=== PATIENT | female | born 1980 | race Caucasian/White ===

== ENCOUNTER 2016-10-28 22:54 | Emergency (ER) | payer OTHER ==
[~2016-10-28] VITALS: Ht 170.2 cm; Wt 127.3 kg
[~2016-10-28 22:54] MED LIST: CIPRO 500MG TA500 MG PO; FERROUS SU325 MG/TAB PO; IBU-6600 MG PO; MOTRIN 800800 MG/TAB PO; NO HOME MEDICATIONS; NORCO 325 MG-51 TAB PO; NORCO 325 MG-7.1 TAB PO; PERCOCET 325 MG1 TA2 PO; PRENATAL VITAMI1 TA5 PO; PRILOSEC 20MG20 MG PO; VALIUM 5MG T5 MG/TAB PO; XANAX .25M0.25 MG/TA PO; ZOFRAN 4MG T4 MG/TAB PO; ZOLOFT 100MG100 MG PO; [UNRECOGNIZED DRUG - MIXTURE]
[2016-10-28 22:59] VITALS: BP 126/88; TEMP 98.4
[2016-10-28] MEDS ORDERED: PERCOCET 325 MG1 TA2 PO (23:27)
[2016-10-28] MEDS ORDERED: ULTRAM 50MG TAB50 MG PO (23:27)
[2016-10-28 23:37] VITALS: PULSE 70
== END 2016-10-28 23:45 | disposition home or self-care (01) ==
LOC: COL.ER 22:54
DX: M25.561 Pain in right knee (principal); G89.29 Other chronic pain; F32.9 Major depressive disorder, single episode, unspecified; F41.9 Anxiety disorder, unspecified

== ENCOUNTER 2017-01-02 19:44 | Emergency (ER) | payer OTHER ==
[~2017-01-02] VITALS: Ht 170.2 cm; Wt 125.6 kg
[~2017-01-02 19:44] MED LIST changes: +ULTRAM 50MG TAB50 MG PO
[2017-01-02 19:46] VITALS: TEMP 97.9
[2017-01-02] MEDS ORDERED: LEXAPRO 10MG10 MG PO (19:50)
[2017-01-02 20:42] LABS: BASO % 0.3 % (0.0-2.0); EOS # 0.1 (0.0-0.7); EOS % 0.6 % (0-4.0); GRAN # 7.8 (1.4-6.5); GRAN % 70.7 % (42.2-75.2); HEMATOCRIT 39.4 % (37.0-47.0); HEMOGLOBIN 13.6 g/dl (12.5-16.0); LYMPH # 2.6 (1.2-3.4); LYMPH % 23.8 % (20.0-51.0); MEAN CELL VOLUME 97 fl (80.0-100.0); MEAN CORPUSCULAR HEMOGLOBIN 33 pg (27.0-31.0); MEAN CORPUSCULAR HGB CONC 35 g/dl (33.0-37.0); MEAN PLATELET VOLUME 11.5 fl (7.4-10.4); MONO # 0.5 (0.1-0.6); MONO % 4.4 % (1.7-9.3); PLATELET COUNT 332 K/mm3 (130-400); RED BLOOD COUNT 4.07 M/mm3 (4.10-5.30); REDCELL DISTRIBUTION WIDTH-CV 12.1 % (11.5-14.5)
[2017-01-02 20:45] LABS: ACETAMINOPHEN < 10 ug/mL (10-30); ADJUSTED CALCIUM 8.9 mg/dL (8.4-10.2); ALANINE AMINOTRANSFERASE 21 U/L (9-52); ALBUMIN 4.7 gm/dL (3.5-5.0); ALKALINE PHOSPHATASE 74 U/L (50-136); ANION GAP 13 mmol/L (7-16); BILIRUBIN,TOTAL 0.8 mg/dL (0.0-1.0); BLOOD UREA NITROGEN 9 mg/dL (7-17); CALCIUM 9.5 mg/dL (8.4-10.2); CARBON DIOXIDE 20 mmol/L (22-30); CHLORIDE 108 mmol/L (98-107); CREATININE, serum 0.71 mg/dL (0.52-1.25); GLUCOSE 94 mg/dL (74-106); POTASSIUM 3.6 mmol/L (3.4-5.0); SALICYLATE 3.1 mg/dL; SODIUM 141 mmol/L (137-145)
[2017-01-02 21:01] LABS: AMPHETAMINE URINE NEGATIVE; BARBITURATES URINE NEGATIVE; BENZODIAZEPINES URINE NEGATIVE; BUPRENORPHINE URINE NEGATIVE; METHADONE URINE NEGATIVE; OPIATES URINE NEGATIVE; OXYCODONE URINE NEGATIVE; PHENCYCLIDINE URINE NEGATIVE; PROPOXYPHENE URINE NEGATIVE; THC CANNABINOIDS URINE NEGATIVE
[2017-01-03 05:50] VITALS: BP 129/77; PULSE 86
== END 2017-01-03 06:00 ==
LOC: COL.ER 19:44
PROVIDERS: Physician Assistant
DX: R45.851 Suicidal ideations (principal); F32.9 Major depressive disorder, single episode, unspecified

== ENCOUNTER 2018-04-03 21:11 | Emergency (ER) | payer BC ==
[~2018-04-03] VITALS: Ht 170.2 cm; Wt 125.0 kg
[~2018-04-03 21:11] MED LIST changes: +DESYREL 50MG50 MG PO; +KLONOPIN 0.5MG0.5 MG PO; +LEXAPRO 10MG10 MG PO; +LEXAPRO20 MG PO
[2018-04-03 21:26] VITALS: TEMP 99.5
[2018-04-03 23:22] LABS: BASO % 0.1 % (0.0-2.0); GRAN # 6.3 (1.4-6.5); GRAN % 85.6 % (42.2-75.2); HEMATOCRIT 36.8 % (37.0-47.0); HEMOGLOBIN 12.7 g/dl (12.5-16.0); LYMPH # 0.7 (1.2-3.4); LYMPH % 8.9 % (20.0-51.0); MEAN CELL VOLUME 96 fl (80.0-100.0); MEAN CORPUSCULAR HEMOGLOBIN 33 pg (27.0-31.0); MEAN CORPUSCULAR HGB CONC 35 g/dl (33.0-37.0); MEAN PLATELET VOLUME 11.4 fl (7.4-10.4); MONO # 0.4 (0.1-0.6); MONO % 5.1 % (1.7-9.3); PLATELET COUNT 248 K/mm3 (130-400); RED BLOOD COUNT 3.82 M/mm3 (4.10-5.30); REDCELL DISTRIBUTION WIDTH-CV 12.5 % (11.5-14.5)
[2018-04-03] MEDS ORDERED: ZOFRAN ODT4 MG PO (23:32)
[2018-04-03 23:36] LABS: ALBUMIN 4.1 gm/dL (3.5-5.0); BILIRUBIN,TOTAL 0.7 mg/dL (0.0-1.0); C-REACTIVE PROTEIN 2.6 mg/dL (0.0-0.9); CALCIUM 8.8 mg/dL (8.4-10.2); CREATININE, serum 0.85 mg/dL (0.52-1.25); POTASSIUM 3.4 mmol/L (3.4-5.0); TOTAL PROTEIN 7.3 gm/dL (6.4-8.2)
[2018-04-04 03:41] VITALS: BP 125/76; PULSE 76
== END 2018-04-04 04:05 | disposition home or self-care (01) ==
LOC: COL.ER 21:11
PROVIDERS: Emergency Medicine
DX: R11.2 Nausea with vomiting, unspecified (principal); R19.7 Diarrhea, unspecified; F32.9 Major depressive disorder, single episode, unspecified; F41.9 Anxiety disorder, unspecified; Z90.49 Acquired absence of other specified parts of digestive tract
CPT/HCPCS: J1885; J2060; J2405; J2550; J7030

== ENCOUNTER 2018-06-25 19:55 | Emergency (ER) | payer BC ==
[~2018-06-25] VITALS: Ht 170.2 cm; Wt 127.3 kg
[~2018-06-25 19:55] MED LIST changes: +ZOFRAN ODT4 MG PO
[2018-06-25 20:06] VITALS: TEMP 97.1
[2018-06-25 20:42] LABS: BASO % 0.2 % (0.0-2.0); EOS # 0.2 (0.0-0.7); GRAN # 5.6 (1.4-6.5); GRAN % 66.2 % (42.2-75.2); HEMATOCRIT 42.1 % (37.0-47.0); HEMOGLOBIN 13.8 g/dl (12.5-16.0); LYMPH # 2.2 (1.2-3.4); LYMPH % 25.9 % (20.0-51.0); MEAN CELL VOLUME 100 fl (80.0-100.0); MEAN CORPUSCULAR HEMOGLOBIN 33 pg (27.0-31.0); MEAN CORPUSCULAR HGB CONC 33 g/dl (33.0-37.0); MEAN PLATELET VOLUME 10.9 fl (7.4-10.4); MONO # 0.5 (0.1-0.6); MONO % 5.5 % (1.7-9.3); PLATELET COUNT 312 K/mm3 (130-400); RED BLOOD COUNT 4.23 M/mm3 (4.10-5.30); REDCELL DISTRIBUTION WIDTH-CV 12.7 % (11.5-14.5)
[2018-06-25 20:56] LABS: ALANINE AMINOTRANSFERASE 9 U/L (9-52); ALBUMIN 4.4 gm/dL (3.5-5.0); ALKALINE PHOSPHATASE 76 U/L (50-136); ANION GAP 9 mmol/L (7-16); AST,SGOT 23 U/L (15-37); BILIRUBIN,TOTAL 0.3 mg/dL (0.0-1.0); BLOOD UREA NITROGEN 12 mg/dL (7-17); CALCIUM 9.5 mg/dL (8.4-10.2); CARBON DIOXIDE 26 mmol/L (22-30); CHLORIDE 106 mmol/L (98-107); CREATININE, serum 0.87 mg/dL (0.52-1.25); GLUCOSE 95 mg/dL (74-106); LIPASE 107 U/L (23-300); POTASSIUM 3.9 mmol/L (3.4-5.0); SODIUM 140 mmol/L (137-145); TOTAL PROTEIN 7.9 gm/dL (6.4-8.2)
[2018-06-25 21:10] LABS: TROPONIN-I < 0.012 ng/mL (0.000-0.035)
[2018-06-25] MEDS ORDERED: SEROQUEL XR400 M1 PO (21:44)
[2018-06-25] MEDS ORDERED: VISTARIL 2525 MG/CAP PO (21:45)
[2018-06-26] VITALS: BP 123/74
[2018-06-26 00:20] VITALS: PULSE 76
== END 2018-06-26 00:20 | disposition home or self-care (01) ==
LOC: COL.ER 19:55
PROVIDERS: Emergency Medicine
DX: R07.9 Chest pain, unspecified (principal)
CPT/HCPCS: J1885; J7030

== ENCOUNTER 2019-04-16 15:52 | Emergency (ER) | payer BC ==
[~2019-04-16] VITALS: Ht 170.2 cm; Wt 138.6 kg
[~2019-04-16 15:52] MED LIST changes: +SEROQUEL XR400 M1 PO; +VISTARIL 2525 MG/CAP PO
[2019-04-16 16:09] VITALS: BP 130/84; TEMP 97.7
[2019-04-16 16:48] LABS: BASO % 0.3 % (0.0-2.0); EOS # 0.4 (0.0-0.7); EOS % 5.3 % (0-4.0); GRAN # 3.9 (1.4-6.5); GRAN % 59.8 % (42.2-75.2); HEMATOCRIT 38.5 % (37.0-47.0); HEMOGLOBIN 12.6 g/dl (12.5-16.0); LYMPH # 1.9 (1.2-3.4); LYMPH % 29.4 % (20.0-51.0); MEAN CELL VOLUME 100 fl (80.0-100.0); MEAN CORPUSCULAR HEMOGLOBIN 33 pg (27.0-31.0); MEAN CORPUSCULAR HGB CONC 33 g/dl (33.0-37.0); MEAN PLATELET VOLUME 10.9 fl (7.4-10.4); MONO # 0.3 (0.1-0.6); PLATELET COUNT 316 K/mm3 (130-400); RED BLOOD COUNT 3.86 M/mm3 (4.10-5.30)
[2019-04-16 16:54] LABS: COLLECTION METHOD CLEAN CATCH
[2019-04-16 16:56] LABS: ALBUMIN 4.5 gm/dL (3.5-5.0); BILIRUBIN,TOTAL 0.2 mg/dL (0.0-1.0); C-REACTIVE PROTEIN 1.1 mg/dL (0.0-0.9); CALCIUM 9.2 mg/dL (8.4-10.2); CREATININE, serum 0.81 (0.52-1.25); POTASSIUM 3.5 mmol/L (3.4-5.0); TOTAL PROTEIN 7.7 gm/dL (6.4-8.2)
[2019-04-16 17:02] LABS: PH 5 (5-8); SQUAMOUS EPITHELIAL 0-2 /hpf; URINE APPEARANCE Clear; URINE BACTERIA None Seen /hpf; URINE BILIRUBIN Negative (NEGATIVE); URINE BLOOD 2+ (NEGATIVE); URINE COLOR Yellow; URINE GLUCOSE Negative (NEGATIVE); URINE KETONE Negative (NEGATIVE); URINE LEUKOCYTE ESTERASE Negative (NEGATIVE); URINE NITRATE Negative (NEGATIVE); URINE PROTEIN(semi-quant) Negative (NEGATIVE); URINE RBC 0-2 /hpf; URINE UROBILINOGEN Negative (NEGATIVE)
[2019-04-16] MEDS ORDERED: GAVILYTE C WI PO (17:49)
[2019-04-16 18:05] VITALS: PULSE 89
== END 2019-04-16 18:05 | disposition home or self-care (01) ==
LOC: COL.ER 15:52
PROVIDERS: Emergency Medicine
DX: K59.00 Constipation, unspecified (principal)

== ENCOUNTER 2019-04-25 13:14 | Emergency (ER) | payer BC ==
[~2019-04-25] VITALS: Ht 170.2 cm; Wt 134.1 kg
[~2019-04-25 13:14] MED LIST changes: +GAVILYTE C WI PO
[2019-04-25 13:19] VITALS: TEMP 98.3
[2019-04-25 14:53] LABS: COLLECTION METHOD CLEAN CATCH
[2019-04-25 14:58] LABS: PH 5 (5-8); SQUAMOUS EPITHELIAL 0-2 /hpf; URINE APPEARANCE Clear; URINE BACTERIA None Seen /hpf; URINE BILIRUBIN Negative (NEGATIVE); URINE BLOOD 2+ (NEGATIVE); URINE COLOR Straw; URINE GLUCOSE Negative (NEGATIVE); URINE KETONE Negative (NEGATIVE); URINE LEUKOCYTE ESTERASE Negative (NEGATIVE); URINE NITRATE Negative (NEGATIVE); URINE PROTEIN(semi-quant) Negative (NEGATIVE); URINE RBC 0-2 /hpf; URINE UROBILINOGEN Negative (NEGATIVE)
[2019-04-25 16:19] LABS: BASO % 0.3 % (0.0-2.0); EOS # 0.2 (0.0-0.7); EOS % 3.8 % (0-4.0); GRAN # 3.5 (1.4-6.5); GRAN % 60.5 % (42.2-75.2); HEMOGLOBIN 11.5 g/dl (12.5-16.0); LYMPH # 1.7 (1.2-3.4); LYMPH % 28.8 % (20.0-51.0); MEAN CELL VOLUME 101 fl (80.0-100.0); MEAN CORPUSCULAR HEMOGLOBIN 33 pg (27.0-31.0); MEAN CORPUSCULAR HGB CONC 33 g/dl (33.0-37.0); MEAN PLATELET VOLUME 11.3 fl (7.4-10.4); MONO # 0.4 (0.1-0.6); MONO % 6.3 % (1.7-9.3); PLATELET COUNT 257 K/mm3 (130-400); RED BLOOD COUNT 3.45 M/mm3 (4.10-5.30); REDCELL DISTRIBUTION WIDTH-CV 13.2 % (11.5-14.5)
[2019-04-25 16:22] LABS: INR 0.9 (0.8-3.0); PROTHROMBIN TIME 10.9 SECONDS (9.7-12.8)
[2019-04-25 16:25] LABS: HEMATOCRIT 34.8 % (37.0-47.0); PARTIAL THROMBOPLASTIN TIME 31.6 SECONDS (26.0-37.0)
[2019-04-25 16:30] LABS: CALCIUM 8.3 mg/dL (8.4-10.2); CREATININE, serum 0.79 (0.52-1.25)
[2019-04-25] MEDS ORDERED: ANECREAM15 RC (17:18)
[2019-04-25 17:35] VITALS: BP 130/77; PULSE 89
== END 2019-04-25 17:35 | disposition home or self-care (01) ==
LOC: COL.ER 13:14
PROVIDERS: Emergency Medicine
DX: K60.2 Anal fissure, unspecified (principal); Z90.89 Acquired absence of other organs

== ENCOUNTER 2019-09-24 12:27 | Emergency (ER) | payer BC ==
[~2019-09-24] VITALS: Ht 170.2 cm; Wt 136.4 kg
[~2019-09-24 12:27] MED LIST changes: +ANECREAM15 RC; +TREMFYA100 MG/1 M SQ; +TRULANCE3 MG PO
[2019-09-24 13:59] LABS: COLLECTION METHOD CLEAN CATCH
[2019-09-24 14:05] LABS: BASO % 0.4 % (0.0-2.0); EOS # 0.3 (0.0-0.7); EOS % 3.2 % (0-4.0); GRAN # 5.1 (1.4-6.5); GRAN % 62.4 % (42.2-75.2); HEMATOCRIT 37.6 % (37.0-47.0); HEMOGLOBIN 12.7 g/dl (12.5-16.0); LYMPH # 2.2 (1.2-3.4); LYMPH % 26.9 % (20.0-51.0); MEAN CELL VOLUME 98 fl (80.0-100.0); MEAN CORPUSCULAR HEMOGLOBIN 33 pg (27.0-31.0); MEAN CORPUSCULAR HGB CONC 34 g/dl (33.0-37.0); MEAN PLATELET VOLUME 11.1 fl (7.4-10.4); MONO # 0.6 (0.1-0.6); MONO % 6.9 % (1.7-9.3); PLATELET COUNT 267 K/mm3 (130-400); RED BLOOD COUNT 3.82 M/mm3 (4.10-5.30); REDCELL DISTRIBUTION WIDTH-CV 13.2 % (11.5-14.5)
[2019-09-24 14:09] LABS: PH 6 (5-8); SQUAMOUS EPITHELIAL None Seen /hpf; URINE APPEARANCE Clear; URINE BACTERIA Rare /hpf; URINE BILIRUBIN Negative (NEGATIVE); URINE BLOOD Negative (NEGATIVE); URINE COLOR Straw; URINE GLUCOSE Negative (NEGATIVE); URINE KETONE Negative (NEGATIVE); URINE LEUKOCYTE ESTERASE Negative (NEGATIVE); URINE NITRATE Negative (NEGATIVE); URINE PROTEIN(semi-quant) Negative (NEGATIVE); URINE RBC None Seen /hpf; URINE UROBILINOGEN Negative (NEGATIVE)
[2019-09-24 14:21] LABS: TRICYCLIC ANTIDEPRESS URINE POSITIVE
[2019-09-24 14:24] LABS: ALANINE AMINOTRANSFERASE 20 U/L (4-34); ALBUMIN 4.3 gm/dL (3.5-5.0); ALKALINE PHOSPHATASE 76 U/L (50-136); ANION GAP 10 mmol/L (7-16); AST,SGOT 23 U/L (15-37); BILIRUBIN,TOTAL 0.4 mg/dL (0.0-1.0); BLOOD UREA NITROGEN 9 mg/dL (7-17); CALCIUM 8.9 mg/dL (8.4-10.2); CARBON DIOXIDE 19 mmol/L (22-30); CHLORIDE 108 mmol/L (98-107); CREATININE, serum 0.87 (0.52-1.25); GLUCOSE 108 mg/dL (74-106); POTASSIUM 3.5 mmol/L (3.4-5.0); SODIUM 137 mmol/L (137-145); TOTAL PROTEIN 7.5 gm/dL (6.4-8.2)
[2019-09-24 14:25] LABS: ACETAMINOPHEN < 10 ug/mL (10-30); ALCOHOL(ethanol),MEDICAL < 10 mg/dL; SALICYLATE < 1.0 mg/dL
[2019-09-24 21:39] VITALS: BP 116/79; PULSE 86; TEMP 98.1
== END 2019-09-24 21:38 | disposition home or self-care (01) ==
LOC: COL.ER 12:27
PROVIDERS: Nurse Practitioner
DX: G47.00 Insomnia, unspecified (principal); R44.0 Auditory hallucinations; R44.1 Visual hallucinations; F41.9 Anxiety disorder, unspecified; F32.9 Major depressive disorder, single episode, unspecified

== ENCOUNTER 2019-11-01 18:29 | Emergency (ER) | payer BC ==
[~2019-11-01] VITALS: Ht 170.2 cm; Wt 136.4 kg
[2019-11-01 19:34] LABS: COLLECTION METHOD CLEAN CATCH
[2019-11-01 19:39] LABS: BASO % 0.4 % (0.0-2.0); EOS # 0.3 (0.0-0.7); EOS % 3.3 % (0-4.0); GRAN # 5.1 (1.4-6.5); GRAN % 65.2 % (42.2-75.2); HEMATOCRIT 40.1 % (37.0-47.0); HEMOGLOBIN 13.5 g/dl (12.5-16.0); LYMPH # 1.9 (1.2-3.4); LYMPH % 23.8 % (20.0-51.0); MEAN CELL VOLUME 99 fl (80.0-100.0); MEAN CORPUSCULAR HEMOGLOBIN 33 pg (27.0-31.0); MEAN CORPUSCULAR HGB CONC 34 g/dl (33.0-37.0); MEAN PLATELET VOLUME 11.2 fl (7.4-10.4); MONO # 0.6 (0.1-0.6); MONO % 7.2 % (1.7-9.3); PLATELET COUNT 323 K/mm3 (130-400); RED BLOOD COUNT 4.05 M/mm3 (4.10-5.30); REDCELL DISTRIBUTION WIDTH-CV 13.1 % (11.5-14.5)
[2019-11-01 19:52] LABS: ALANINE AMINOTRANSFERASE 22 U/L (4-34); ALBUMIN 4.5 gm/dL (3.5-5.0); ALKALINE PHOSPHATASE 77 U/L (50-136); ANION GAP 10 mmol/L (7-16); AST,SGOT 29 U/L (15-37); BILIRUBIN,TOTAL 0.6 mg/dL (0.0-1.0); BLOOD UREA NITROGEN 12 mg/dL (7-17); C-REACTIVE PROTEIN 0.9 mg/dL (0.0-0.9); CALCIUM 9.2 mg/dL (8.4-10.2); CARBON DIOXIDE 20 mmol/L (22-30); CHLORIDE 109 mmol/L (98-107); CREATININE, serum 0.91 (0.52-1.25); GLUCOSE 95 mg/dL (74-106); LIPASE 96 U/L (23-300); POTASSIUM 3.5 mmol/L (3.4-5.0); SODIUM 139 mmol/L (137-145); TOTAL PROTEIN 8.2 gm/dL (6.4-8.2)
[2019-11-01 19:55] LABS: MUCOUS Present /lpf; PH 5 (5-8); SQUAMOUS EPITHELIAL 0-2 /hpf; URINE APPEARANCE Clear; URINE BACTERIA None Seen /hpf; URINE BILIRUBIN Negative (NEGATIVE); URINE BLOOD Negative (NEGATIVE); URINE COLOR Yellow; URINE GLUCOSE Negative (NEGATIVE); URINE KETONE Negative (NEGATIVE); URINE LEUKOCYTE ESTERASE Negative (NEGATIVE); URINE NITRATE Negative (NEGATIVE); URINE PROTEIN(semi-quant) Negative (NEGATIVE); URINE UROBILINOGEN Negative (NEGATIVE)
[2019-11-01 20:06] LABS: TROPONIN-I < 0.012 ng/mL (0.000-0.035)
[2019-11-01 21:09] VITALS: BP 124/74; PULSE 62; TEMP 98.2
== END 2019-11-01 21:11 | disposition home or self-care (01) ==
LOC: COL.ER 18:29
PROVIDERS: Emergency Medicine
DX: R10.13 Epigastric pain (principal); K21.9 Gastro-esophageal reflux disease without esophagitis; F41.9 Anxiety disorder, unspecified; F32.9 Major depressive disorder, single episode, unspecified; Z90.49 Acquired absence of other specified parts of digestive tract
CPT/HCPCS: J2405; J3010; J7030

== ENCOUNTER 2019-11-15 20:37 | Emergency (ER) | payer BC ==
[~2019-11-15] VITALS: Ht 170.2 cm; Wt 134.1 kg
[2019-11-15 20:45] VITALS: BP 116/83; TEMP 98.8
[2019-11-15 21:31] LABS: COLLECTION METHOD CLEAN CATCH
[2019-11-15 21:34] LABS: BASO % 0.4 % (0.0-2.0); EOS # 0.3 (0.0-0.7); EOS % 3.9 % (0-4.0); GRAN # 5.6 (1.4-6.5); HEMATOCRIT 42.3 % (37.0-47.0); HEMOGLOBIN 14.2 g/dl (12.5-16.0); LYMPH # 1.7 (1.2-3.4); LYMPH % 20.7 % (20.0-51.0); MEAN CELL VOLUME 99 fl (80.0-100.0); MEAN CORPUSCULAR HEMOGLOBIN 33 pg (27.0-31.0); MEAN CORPUSCULAR HGB CONC 34 g/dl (33.0-37.0); MEAN PLATELET VOLUME 11.3 fl (7.4-10.4); MONO # 0.5 (0.1-0.6); MONO % 5.8 % (1.7-9.3); PLATELET COUNT 299 K/mm3 (130-400); RED BLOOD COUNT 4.29 M/mm3 (4.10-5.30); REDCELL DISTRIBUTION WIDTH-CV 13.2 % (11.5-14.5)
[2019-11-15 21:37] LABS: MUCOUS Present /lpf; PH 5 (5-8); SQUAMOUS EPITHELIAL 0-2 /hpf; URINE APPEARANCE Clear; URINE BACTERIA None Seen /hpf; URINE BILIRUBIN Negative (NEGATIVE); URINE BLOOD Negative (NEGATIVE); URINE COLOR Yellow; URINE GLUCOSE Negative (NEGATIVE); URINE KETONE Negative (NEGATIVE); URINE LEUKOCYTE ESTERASE Negative (NEGATIVE); URINE NITRATE Negative (NEGATIVE); URINE PROTEIN(semi-quant) Negative (NEGATIVE); URINE RBC None Seen /hpf; URINE UROBILINOGEN Negative (NEGATIVE)
[2019-11-15 21:45] LABS: ALBUMIN 4.6 gm/dL (3.5-5.0); BILIRUBIN,TOTAL 0.5 mg/dL (0.0-1.0); C-REACTIVE PROTEIN 2.6 mg/dL (0.0-0.9); CALCIUM 9.1 mg/dL (8.4-10.2); CREATININE, serum 0.92 (0.52-1.25); POTASSIUM 4.2 mmol/L (3.4-5.0); TOTAL PROTEIN 8.4 gm/dL (6.4-8.2)
[2019-11-15 22:24] VITALS: PULSE 93
== END 2019-11-15 22:24 | disposition home or self-care (01) ==
LOC: COL.ER 20:37
PROVIDERS: Family Medicine
DX: K58.9 Irritable bowel syndrome, unspecified (principal); R10.9 Unspecified abdominal pain; F31.9 Bipolar disorder, unspecified
CPT/HCPCS: J1170; J2405; J7120

== ENCOUNTER → 2019-11-29 | Outpatient (CLI) | payer BC | LOC: COL.RAD 10:23 | DX: Z01.812 Encounter for preprocedural laboratory examination (principal); I67.1 Cerebral aneurysm, nonruptured ==

== ENCOUNTER 2019-12-02 07:58 | Outpatient (CLI) | payer BC ==
[~2019-12-02] VITALS: Ht 170.2 cm; Wt 140.6 kg
[2019-12-02] MEDS ORDERED: SEROQUEL400 MG PO (08:10)
[2019-12-02] MEDS ORDERED: TRILEPTAL 150M150 MG PO (08:11)
[2019-12-02] MEDS ORDERED: TRULANCE3 MG PO (08:12)
[2019-12-02] MEDS ORDERED: DESYREL DIVIDO150 M1 PO (08:12)
[2019-12-02] MEDS ORDERED: TREMFYA100 MG/1 M SQ (08:13)
[2019-12-02 08:14] VITALS: BP 122/86; PULSE 85
[2019-12-02 09:09] VITALS: BP 112/63; PULSE 66
[2019-12-02 09:15] VITALS: BP 108/66; PULSE 64
[2019-12-02 09:30] VITALS: BP 114/63; PULSE 61
[2019-12-02 09:43] LABS: GLUCOSE,CSF 50 mg/dL (40-70); TOTAL PROTEIN,CSF 32 mg/dL (15-45)
[2019-12-02 09:45] VITALS: BP 115/60; PULSE 59
[2019-12-02 10:00] VITALS: BP 118/65; PULSE 60
--- NOTE | 2019-12-02 10:36 | NUR ---
Pt recovered well from her LP. She denied any complaints at time of discharge. She verbalized understanding of dc instructions, written and verbal, and chose to ambulate to exit. I ambulated with pt to [facility] where she met her , gait was steady.
[2019-12-02 10:47] LABS: CSF APPEARANCE CLEAR; CSF COLOR COLORLESS
[2019-12-02 10:48] LABS: CSF MONONUCLEAR 74 % (70-100); CSF POLYMORPHONUCLEAR 26 % (0-6); CSF RBC < 1 /mm3 (0-0)
[2019-12-03] MEDS ORDERED: SEROQUEL XR400 M1 PO (21:12)
[2019-12-03] MEDS ORDERED: PRILOSEC 20MG20 MG PO (22:42)
[2019-12-03] MEDS ORDERED: TOPAMAX50 MG PO (22:44)
[2019-12-03] MEDS ORDERED: VISTARIL 2525 MG/CAP PO (22:48)
[2019-12-03] MEDS ORDERED: ULTRAM 50MG TAB50 MG PO (22:49)
== END 2019-12-02 10:38 | disposition home or self-care (01) ==
LOC: COL.RAD 07:58
PROVIDERS: Psychiatry & Neurology Neurology
DX: G93.2 Benign intracranial hypertension (principal)

== ENCOUNTER 2019-12-03 19:48 | Inpatient (IN) | payer BC ==
[~2019-12-03] VITALS: Ht 170.2 cm; Wt 135.5 kg
[2019-12-03] VITALS (102 sets, daily range): BP systolic 126; BP diastolic 75; PULSE 80; TEMP 98.9; O2SAT 91–99
[~2019-12-03 19:48] MED LIST changes: +DESYREL DIVIDO150 M1 PO; +SEROQUEL400 MG PO; +TRILEPTAL 150M150 MG PO
[2019-12-03 20:05] LABS: BASO % 0.6 % (0.0-2.0); EOS # 0.2 (0.0-0.7); EOS % 2.9 % (0-4.0); GRAN # 3.9 (1.4-6.5); GRAN % 55.6 % (42.2-75.2); HEMATOCRIT 38.2 % (37.0-47.0); HEMOGLOBIN 12.9 g/dl (12.5-16.0); LYMPH # 2.4 (1.2-3.4); LYMPH % 34.9 % (20.0-51.0); MEAN CELL VOLUME 99 fl (80.0-100.0); MEAN CORPUSCULAR HEMOGLOBIN 33 pg (27.0-31.0); MEAN CORPUSCULAR HGB CONC 34 g/dl (33.0-37.0); MEAN PLATELET VOLUME 10.9 fl (7.4-10.4); MONO # 0.4 (0.1-0.6); MONO % 5.9 % (1.7-9.3); PLATELET COUNT 315 K/mm3 (130-400); RED BLOOD COUNT 3.87 M/mm3 (4.10-5.30); REDCELL DISTRIBUTION WIDTH-CV 13.1 % (11.5-14.5)
[2019-12-03 20:16] LABS: ACETAMINOPHEN < 10 ug/mL (10-30); ALANINE AMINOTRANSFERASE 44 U/L (4-34); ALBUMIN 4.3 gm/dL (3.5-5.0); ALCOHOL(ethanol),MEDICAL < 10 mg/dL; ALKALINE PHOSPHATASE 80 U/L (50-136); ANION GAP 7 mmol/L (7-16); AST,SGOT 47 U/L (15-37); BILIRUBIN,TOTAL 0.4 mg/dL (0.0-1.0); BLOOD UREA NITROGEN 6 mg/dL (7-17); CALCIUM 9.2 mg/dL (8.4-10.2); CARBON DIOXIDE 26 mmol/L (22-30); CHLORIDE 104 mmol/L (98-107); CREATININE, serum 0.87 (0.52-1.25); GLUCOSE 102 mg/dL (74-106); POTASSIUM 3.8 mmol/L (3.4-5.0); SALICYLATE < 1.0 mg/dL; SODIUM 137 mmol/L (137-145); TOTAL PROTEIN 7.6 gm/dL (6.4-8.2)
[2019-12-03] MEDS ORDERED: SEROQUEL XR400 M1 PO (21:12)
[2019-12-03 21:44] LABS: COLLECTION METHOD CLEAN CATCH
--- NOTE | 2019-12-03 21:54 | NUR ---
Received report from DAYAN Day.
[2019-12-03 21:55] LABS: PH 7 (5-8); SQUAMOUS EPITHELIAL 0-2 /hpf; URINE APPEARANCE Clear; URINE BACTERIA None Seen /hpf; URINE BILIRUBIN Negative (NEGATIVE); URINE BLOOD Negative (NEGATIVE); URINE COLOR Yellow; URINE GLUCOSE Negative (NEGATIVE); URINE KETONE Negative (NEGATIVE); URINE LEUKOCYTE ESTERASE Negative (NEGATIVE); URINE NITRATE Negative (NEGATIVE); URINE PROTEIN(semi-quant) Negative (NEGATIVE); URINE RBC 0-2 /hpf; URINE UROBILINOGEN Negative (NEGATIVE)
[2019-12-03 22:08] LABS: TRICYCLIC ANTIDEPRESS URINE POSITIVE
--- NOTE | 2019-12-03 22:10 | NUR ---
Patient arrives to ICU room 8 via ED stretcher. Patient able to ambulate to ICU bed with SBA. Denies any pain or discomfort; vitals within normal limits. Patient is alert and oriented to self, time, location, and situation. She denies any current thoughts of self-harm. Clarified suicide precaution orders with Kathi; patient to be on 15-minute checks. Patient arrives with a bag of medications and a pill sales planner, which are given to warehouse person, Ellen. She also arrives with a bag of clothes, which are placed in the ICU safe. Patient is in novoa gown and the room has been safety-sweeped according to protocol. Will continue to monitor.
[2019-12-03] MEDS ORDERED: PRILOSEC 20MG20 MG PO (22:42)
[2019-12-03] MEDS ORDERED: TOPAMAX50 MG PO (22:44)
[2019-12-03] MEDS ORDERED: VISTARIL 2525 MG/CAP PO (22:48)
[2019-12-03 22:49] LABS: ALBUMIN 3.9 gm/dL (3.5-5.0); BILIRUBIN,TOTAL 0.3 mg/dL (0.0-1.0); CALCIUM 8.5 mg/dL (8.4-10.2); CREATININE, serum 0.82 (0.52-1.25); POTASSIUM 3.6 mmol/L (3.4-5.0); TOTAL PROTEIN 6.9 gm/dL (6.4-8.2)
[2019-12-03] MEDS ORDERED: ULTRAM 50MG TAB50 MG PO (22:49)
[2019-12-04] VITALS (456 sets, daily range): BP systolic 98–152; BP diastolic 5–91; PULSE 71–85; TEMP 97.4–98.9; O2SAT 81–100
[2019-12-04 00:20] LABS: PROTHROMBIN TIME 11.1 SECONDS (9.7-12.8)
[2019-12-04 00:23] LABS: PARTIAL THROMBOPLASTIN TIME 33.2 SECONDS (26.0-37.0)
[2019-12-04 05:36] LABS: ALBUMIN 3.6 gm/dL (3.5-5.0); BILIRUBIN,TOTAL 0.4 mg/dL (0.0-1.0); CALCIUM 8.2 mg/dL (8.4-10.2); CREATININE, serum 0.75 (0.52-1.25); POTASSIUM 3.8 mmol/L (3.4-5.0); TOTAL PROTEIN 6.5 gm/dL (6.4-8.2)
[2019-12-04 05:48] LABS: BASO % 0.4 % (0.0-2.0); EOS # 0.2 (0.0-0.7); GRAN # 3.3 (1.4-6.5); GRAN % 57.4 % (42.2-75.2); HEMOGLOBIN 11.9 g/dl (12.5-16.0); LYMPH # 1.8 (1.2-3.4); LYMPH % 31.8 % (20.0-51.0); MEAN CELL VOLUME 101 fl (80.0-100.0); MEAN CORPUSCULAR HEMOGLOBIN 34 pg (27.0-31.0); MEAN CORPUSCULAR HGB CONC 33 g/dl (33.0-37.0); MEAN PLATELET VOLUME 11.4 fl (7.4-10.4); MONO # 0.4 (0.1-0.6); MONO % 7.2 % (1.7-9.3); PLATELET COUNT 247 K/mm3 (130-400); RED BLOOD COUNT 3.54 M/mm3 (4.10-5.30); REDCELL DISTRIBUTION WIDTH-CV 13.2 % (11.5-14.5)
[2019-12-04 05:56] LABS: HEMATOCRIT 35.7 % (37.0-47.0)
--- NOTE | 2019-12-04 07:27 | NUR ---
Report given to DAYAN Mejia.
--- NOTE | 2019-12-04 07:27 | NUR ---
Report recieved from Zeina HANLEY. Patient in bed with eyes closed. Bed alarm on and call light in reach
--- NOTE | 2019-12-04 07:47 | NUR ---
Patient tells RN that she was incontietn fo urine. Up to chair for linen change and pericare. When getting up patient is impulsive, moves without assistance. States she is dizzy, unsteady on feet. Lowered to floor at this time. No injury noted, did not hit head. Able to get up to recliner with minimal assist from RN. Denies pain, dizziness improving. Transfer from recliner to toilet with 1:1 assit. Voids without diffictulty. When transferring back to recliner, needs reminded to wait for help and take her time. Gait unsteady, but minimal assist needed with transfer. Patient then transfers back to bed. Bed alarm on and bed rails on x4, call light in reach.
--- NOTE | 2019-12-04 08:25 | NUR ---
Heri Pugh RN, [place] [facility] notified of fall.
--- NOTE | 2019-12-04 08:47 | NUR ---
Patient tells RN that she was incontient of urine. Up to chair for linen change and pericare. When getting up patient is impulsive, moves without assitance. States she is dizzy, unsteady on feet. Lowered to floor at this time. No injury, does not hit head. Able to get up to recliner with minimal assist from RN. Denies pain, dizziness improving. Transfers from recliner to toilet with 1:1 assist. Voids without difficulty. When transferring back to recliner, needs reminded to wait for help and take her time. Gait unsteady, but minimal assist needed with transfer. Patient then transfers back to bed. Bed alarm on and bed rails up by 4, call light in reach.
--- NOTE | 2019-12-04 09:50 | NUR ---
Catherine from [facility] calls to set up Zoom session with patient. Patient sat up in bed and speaks with her at length. After session plan made, patient does not want inpatient hospitalization and neither think she's ready to return home, so patient agreeable to going to [facility] when stable and medically cleared. Will notify Dr. Thompson of plans. also called and updated.
--- NOTE | 2019-12-04 11:10 | NUR ---
To CT via cart for CT Head. 1120 - Returns from CT via cart with tech at side.
--- NOTE | 2019-12-04 11:50 | NUR ---
here to visit after ok from Dr. Thompson.
--- NOTE | 2019-12-04 14:51 | NUR ---
Catherine at [facility] called with patient update. Patient will be staying overnight and we will reassess in AM. [facility] states screen is good for several days, the only issue may be space but doesn't foresee that being an issue.
--- NOTE | 2019-12-04 16:17 | NUR ---
SW called spouse to complete intake due to patient not waking up for intake. Nurse provided patient has been sleeping most of the day. Spouse Jose Alberto stated that patient lives in [place] with him and their children. He states that she does not utilize a walker at this time, but does have some trouble walking. Spouse stated that she is independent with ADL's, PCP is Dr. Purcell, pharmacy is [facility] and that she is able to afford her medications at this time. Spouse stated that he is aware that upon discharge patient will be going to [facility] due to zoom screen today. SW will continue to follow.
--- NOTE | 2019-12-04 16:17 | NUR ---
brought patient belongings to hospital. Cell phone and commercial specialist out of bag for patient. While looking for cellphone, found Clonazepam in purse. 6 tablets in bottle. Bottle to med room, placed in zip lock bag with patient label and House Sup notified.
--- NOTE | 2019-12-04 18:00 | NUR ---
Arrives to ICU via stretcher from ED. Stands with minimal assists and transfers to bed. SOA with exerc but recovers quickly. Denies complaints of pain. Monitors applied and assessment complete. [place] to ICU. Call light given. Patient does have old, healed skin lesion under right abd fold. Approx nickel sized, no open areas. States will occassionally open, but isn't at this time.
--- NOTE | 2019-12-04 20:39 | NUR ---
PT complaining of back pain, requested to get up and stretch. PT up to recliner with assistance of RN, both understanding and verbalizing that she needed assistance due to shakiness. PT stated relief of pain while sitting up in recliner. Personal items and call light within reach, instructed to use call light for repositioning, PT sitting in visible spot from nurses station, yellow traction socks on. Will continue to monitor.
[2019-12-05] VITALS (7 sets, daily range): BP systolic 126–140; BP diastolic 70–78; PULSE 68–80; TEMP 98–98.7; O2SAT 93–97
[2019-12-05 05:06] LABS: BASO % 0.3 % (0.0-2.0); EOS # 0.3 (0.0-0.7); GRAN # 5.8 (1.4-6.5); GRAN % 66.5 % (42.2-75.2); HEMOGLOBIN 11.4 g/dl (12.5-16.0); LYMPH # 2.1 (1.2-3.4); MEAN CELL VOLUME 101 fl (80.0-100.0); MEAN CORPUSCULAR HEMOGLOBIN 34 pg (27.0-31.0); MEAN CORPUSCULAR HGB CONC 34 g/dl (33.0-37.0); MONO # 0.5 (0.1-0.6); PLATELET COUNT 273 K/mm3 (130-400); RED BLOOD COUNT 3.38 M/mm3 (4.10-5.30); REDCELL DISTRIBUTION WIDTH-CV 13.1 % (11.5-14.5)
[2019-12-05 05:16] LABS: CALCIUM 8.3 mg/dL (8.4-10.2); CREATININE, serum 0.74 (0.52-1.25); MAGNESIUM 2.2 mg/dL (1.6-2.3)
[2019-12-05] MEDS ORDERED: WALKER MC (11:38)
--- NOTE | 2019-12-05 11:50 | NUR ---
[facility] called at this time to notify them of patient arrival. Requested copy of records for admission-given to patient's to deliver.
--- NOTE | 2019-12-05 13:40 | NUR ---
Patient discharged into the care of her . Transfered to [facility] via wheelchair. All belongings and home medications collected and given to . Patient tearful but states she is ready to leave and go to the crisis center. Gluer Machine Setup Operator working on getting a walker delivered for patient use.
--- NOTE | 2019-12-05 14:20 | NUR ---
Received a call from the hospitalist informing SW that patient needed a walker and she would be discharing today. LEANA coordinated with nurse to complete documentation and to get appropriate signatures from the patient and the provider. LEANA contacted [facility] to coordinate delivery of equipment. LEANA faxed over documents, and contacted [facility] to inform them that documents had been sent. LEANA also contacted [facility] to inform them that DME would be delieved to that address.
== END 2019-12-05 13:40 | disposition home or self-care (01) | DRG 918 ==
LOC: COL.ER 19:48 → ICU 21:03
PROVIDERS: Emergency Medicine; Nurse Practitioner Family; ADMIT Hospitalist
DX: T43.222A Poisoning by selective serotonin reuptake inhibitors, intentional self-harm, initial encounter (principal); Z68.42 Body mass index [BMI] 45.0-49.9, adult; T43.592A Poisoning by other antipsychotics and neuroleptics, intentional self-harm, initial encounter; T42.1X2A Poisoning by iminostilbenes, intentional self-harm, initial encounter; T43.212A Poisoning by selective serotonin and norepinephrine reuptake inhibitors, intentional self-harm, initial encounter; F45.0 Somatization disorder; G62.9 Polyneuropathy, unspecified; E66.01 Morbid (severe) obesity due to excess calories; K58.9 Irritable bowel syndrome, unspecified; F41.9 Anxiety disorder, unspecified; F31.9 Bipolar disorder, unspecified
CPT/HCPCS: 99223-AI; 99232-AI; 99239; J2060; J2405; J7030

== ENCOUNTER → 2020-02-04 | Outpatient (CLI) | payer BC ==
[~2020-02-04] MED LIST changes: +TOPAMAX50 MG PO; +WALKER MC
== END ==
LOC: ZCOL.LAB 19:45
DX: R50.9 Fever, unspecified (principal); R05 Cough; R53.83 Other fatigue; R11.11 Vomiting without nausea; Z20.828 Contact with and (suspected) exposure to other viral communicable diseases

== ENCOUNTER → 2020-06-22 | Outpatient (CLI) | payer OTHER ==
[~2020-06-22] MED LIST changes: +ANTIVERT 25MG25 MG PO
== END ==
LOC: COL.RAD
DX: M25.562 Pain in left knee (principal)
CPT/HCPCS: J3301; Q9967

== ENCOUNTER → 2020-07-07 | Outpatient (CLI) | payer BC | LOC: COL.RAD 14:49 | DX: Z90.49 Acquired absence of other specified parts of digestive tract (principal); R10.31 Right lower quadrant pain | CPT/HCPCS: Q9967 ==

== ENCOUNTER 2020-10-12 23:06 | Emergency (ER) | payer BC ==
[~2020-10-12] VITALS: Ht 170.2 cm; Wt 136.4 kg
[~2020-10-12 23:06] MED LIST changes: -ANTIVERT 25MG25 MG PO
[2020-10-13 00:03] LABS: BASO % 0.3 % (0.0-2.0); EOS # 0.1 (0.0-0.7); EOS % 1.4 % (0-4.0); GRAN # 6.5 (1.4-6.5); GRAN % 68.6 % (42.2-75.2); HEMATOCRIT 40.2 % (37.0-47.0); HEMOGLOBIN 13.7 g/dl (12.5-16.0); LYMPH # 2.2 (1.2-3.4); LYMPH % 22.8 % (20.0-51.0); MEAN CELL VOLUME 97 fl (80.0-100.0); MEAN CORPUSCULAR HEMOGLOBIN 33 pg (27.0-31.0); MEAN CORPUSCULAR HGB CONC 34 g/dl (33.0-37.0); MONO # 0.6 (0.1-0.6); MONO % 6.7 % (1.7-9.3); PLATELET COUNT 368 K/mm3 (130-400); RED BLOOD COUNT 4.15 M/mm3 (4.10-5.30); REDCELL DISTRIBUTION WIDTH-CV 12.4 % (11.5-14.5)
[2020-10-13 00:30] LABS: ALBUMIN 4.6 gm/dL (3.5-5.0); BILIRUBIN,TOTAL 0.3 mg/dL (0.0-1.0); C-REACTIVE PROTEIN 0.9 mg/dL (0.0-0.9); CALCIUM 9.9 mg/dL (8.4-10.2); CREATININE, serum 0.68 (0.52-1.25); POTASSIUM 3.9 mmol/L (3.4-5.0); TOTAL PROTEIN 8.1 gm/dL (6.4-8.2)
[2020-10-13] MEDS ORDERED: ANTIVERT 25MG25 MG PO (01:51)
[2020-10-13] MEDS ORDERED: ZOFRAN ODT4 MG PO (01:51)
[2020-10-13 03:00] VITALS: BP 123/68; PULSE 85; TEMP 97.9
== END 2020-10-13 03:00 | disposition home or self-care (01) ==
LOC: COL.ER 23:06
PROVIDERS: Emergency Medicine
DX: R42 Dizziness and giddiness (principal); R11.2 Nausea with vomiting, unspecified; G43.909 Migraine, unspecified, not intractable, without status migrainosus; F31.9 Bipolar disorder, unspecified; F41.9 Anxiety disorder, unspecified; Z79.899 Other long term (current) drug therapy
CPT/HCPCS: J2550; J7030

== ENCOUNTER 2021-03-23 10:02 | Emergency (ER) | payer BC ==
[~2021-03-23] VITALS: Ht 170.2 cm; Wt 139.5 kg
[~2021-03-23 10:02] MED LIST changes: +ANTIVERT 25MG25 MG PO
[2021-03-23 10:18] VITALS: TEMP 97.8
[2021-03-23] MEDS ORDERED: HUMIRA20 MG/0.2 SQ (10:46)
[2021-03-23] MEDS ORDERED: ATIVAN 1MG T1 MG/TAB PO (10:48)
[2021-03-23 11:12] LABS: BASO % 0.3 % (0.0-2.0); EOS # 0.2 K/mm3 (0.0-0.7); EOS % 2.1 % (0-4.0); GRAN # 5.4 K/mm3 (1.4-6.5); GRAN % 76.2 % (42.2-75.2); HEMOGLOBIN 13.2 g/dl (12.5-16.0); LYMPH # 1.2 K/mm3 (1.2-3.4); LYMPH % 16.1 % (20.0-51.0); MEAN CELL VOLUME 95 fl (80.0-100.0); MEAN CORPUSCULAR HEMOGLOBIN 33 pg (27.0-31.0); MEAN CORPUSCULAR HGB CONC 35 g/dl (33.0-37.0); MEAN PLATELET VOLUME 11.3 fl (7.4-10.4); MONO # 0.4 K/mm3 (0.1-0.6); PLATELET COUNT 279 K/mm3 (130-400); RED BLOOD COUNT 4.02 M/mm3 (4.10-5.30); REDCELL DISTRIBUTION WIDTH-CV 12.1 % (11.5-14.5)
[2021-03-23 11:28] LABS: ALBUMIN 3.9 gm/dL (3.5-5.0); BILIRUBIN,TOTAL 0.4 mg/dL (0.2-1.2); C-REACTIVE PROTEIN 1.03 mg/dL (0.00-0.50); CALCIUM 8.7 mg/dL (8.4-10.2); CREATININE, serum 0.72 mg/dL (0.57-1.11); POTASSIUM 4.1 mmol/L (3.5-4.5)
[2021-03-23 12:12] LABS: COLLECTION METHOD CLEAN CATCH
[2021-03-23 12:27] LABS: MUCOUS Present (NOT PRESENT); PH 7 (5-8); SQUAMOUS EPITHELIAL None Seen /hpf (0-10); URINE APPEARANCE Clear (CLEAR/HAZY); URINE BACTERIA None Seen (NONE SEEN); URINE BILIRUBIN Negative (NEGATIVE); URINE BLOOD Negative (NEGATIVE); URINE COLOR Straw (YELLOW); URINE GLUCOSE Negative (NEGATIVE); URINE KETONE Negative (NEGATIVE); URINE LEUKOCYTE ESTERASE Negative (NEGATIVE); URINE NITRATE Negative (NEGATIVE); URINE PROTEIN(semi-quant) Negative (NEGATIVE); URINE RBC None Seen /hpf (0-2); URINE UROBILINOGEN Negative (NEGATIVE)
[2021-03-23] MEDS ORDERED: NORCO 325 MG-51 TAB PO (15:25)
[2021-03-23 15:48] VITALS: BP 136/76; PULSE 78
== END 2021-03-23 15:55 | disposition home or self-care (01) ==
LOC: COL.ER 10:02
PROVIDERS: Nurse Practitioner
DX: R10.10 Upper abdominal pain, unspecified (principal); K58.9 Irritable bowel syndrome, unspecified; Z32.02 Encounter for pregnancy test, result negative; Z79.899 Other long term (current) drug therapy
CPT/HCPCS: J1170; J7030; Q9967

== ENCOUNTER 2021-04-22 00:50 | Emergency (ER) | payer BC ==
[~2021-04-22] VITALS: Ht 170.2 cm; Wt 134.1 kg
[~2021-04-22 00:50] MED LIST changes: +ATIVAN 1MG T1 MG/TAB PO; +HUMIRA20 MG/0.2 SQ
[2021-04-22 00:56] VITALS: TEMP 97.8
[2021-04-22 01:37] LABS: BASO % 0.4 % (0.0-2.0); EOS # 0.3 K/mm3 (0.0-0.7); EOS % 3.6 % (0.0-4.0); GRAN # 4.6 K/mm3 (1.4-6.5); HEMATOCRIT 38.4 % (37.0-47.0); HEMOGLOBIN 12.8 g/dl (12.5-16.0); LYMPH # 2.5 K/mm3 (1.2-3.4); LYMPH % 31.5 % (20.0-51.0); MEAN CELL VOLUME 99 fl (80.0-100.0); MEAN CORPUSCULAR HEMOGLOBIN 33 pg (27-31); MEAN CORPUSCULAR HGB CONC 33 g/dl (33.0-37.0); MEAN PLATELET VOLUME 11.1 fl (7.4-10.4); MONO # 0.5 K/mm3 (0.1-0.6); MONO % 6.1 % (1.7-9.3); PLATELET COUNT 305 K/mm3 (130-400); REDCELL DISTRIBUTION WIDTH-CV 12.8 % (11.5-14.5)
[2021-04-22 01:57] LABS: ALANINE AMINOTRANSFERASE 12 U/L (0-55); ALBUMIN 3.7 gm/dL (3.5-5.0); ALKALINE PHOSPHATASE 77 U/L (40-150); ANION GAP 12 mmol/L (7-16); AST,SGOT 17 U/L (5-34); BILIRUBIN,TOTAL 0.2 mg/dL (0.2-1.2); BLOOD UREA NITROGEN 13 mg/dL (7-19); C-REACTIVE PROTEIN 0.47 mg/dL (0.00-0.50); CALCIUM 8.7 mg/dL (8.4-10.2); CARBON DIOXIDE 17 mmol/L (22-29); CHLORIDE 108 mmol/L (98-107); CREATININE, serum 0.73 mg/dL (0.57-1.11); GLUCOSE 146 mg/dL (70-99); POTASSIUM 3.3 mmol/L (3.5-4.5); SODIUM 137 mmol/L (136-145); TOTAL PROTEIN 6.9 gm/dL (6.2-8.1)
[2021-04-22 02:09] LABS: TROPONIN-I < 0.010 ng/mL (0.00-0.033)
[2021-04-22] MEDS ORDERED: ZOFRAN ODT4 MG PO (03:53)
[2021-04-22 04:30] VITALS: BP 137/77; PULSE 97
== END 2021-04-22 04:30 | disposition home or self-care (01) ==
LOC: COL.ER 00:50
PROVIDERS: Emergency Medicine
DX: I95.1 Orthostatic hypotension (principal); F41.9 Anxiety disorder, unspecified; F31.81 Bipolar II disorder; L40.9 Psoriasis, unspecified; E66.01 Morbid (severe) obesity due to excess calories; G47.00 Insomnia, unspecified; K58.9 Irritable bowel syndrome, unspecified; Z20.822 Contact with and (suspected) exposure to COVID-19; Z68.42 Body mass index [BMI] 45.0-49.9, adult; Z79.899 Other long term (current) drug therapy
CPT/HCPCS: J2405; J7030

== ENCOUNTER 2021-07-01 16:08 | Emergency (ER) | payer BC ==
[~2021-07-01] VITALS: Ht 170.2 cm; Wt 136.4 kg
[2021-07-01 16:20] VITALS: TEMP 97
[2021-07-01 16:58] LABS: BASO % 0.4 % (0.0-2.0); EOS # 0.2 K/mm3 (0.0-0.7); EOS % 3.7 % (0.0-4.0); GRAN # 2.7 K/mm3 (1.4-6.5); GRAN % 57.9 % (42.2-75.2); HEMOGLOBIN 11.8 g/dl (12.5-16.0); LYMPH # 1.4 K/mm3 (1.2-3.4); LYMPH % 30.7 % (20.0-51.0); MEAN CELL VOLUME 95 fl (80.0-100.0); MEAN CORPUSCULAR HEMOGLOBIN 33 pg (27-31); MEAN CORPUSCULAR HGB CONC 35 g/dl (33.0-37.0); MEAN PLATELET VOLUME 10.2 fl (7.4-10.4); MONO # 0.3 K/mm3 (0.1-0.6); MONO % 7.1 % (1.7-9.3); PLATELET COUNT 277 K/mm3 (130-400); RED BLOOD COUNT 3.53 M/mm3 (4.10-5.30); REDCELL DISTRIBUTION WIDTH-CV 13.1 % (11.5-14.5)
[2021-07-01 16:59] LABS: HEMATOCRIT 33.6 % (37.0-47.0)
[2021-07-01 17:16] LABS: ALBUMIN 3.5 gm/dL (3.5-5.0); BILIRUBIN,TOTAL 0.2 mg/dL (0.2-1.2); CALCIUM 8.4 mg/dL (8.4-10.2); CREATININE, serum 0.75 mg/dL (0.57-1.11); POTASSIUM 4.1 mmol/L (3.5-4.5); TOTAL PROTEIN 6.5 gm/dL (6.2-8.1)
[2021-07-01 17:49] VITALS: BP 136/91; PULSE 87
== END 2021-07-01 17:55 | disposition home or self-care (01) ==
LOC: COL.ER 16:08
PROVIDERS: Nurse Practitioner Primary Care
DX: T42.4X2A Poisoning by benzodiazepines, intentional self-harm, initial encounter (principal); T43.592A Poisoning by other antipsychotics and neuroleptics, intentional self-harm, initial encounter; F41.9 Anxiety disorder, unspecified

== ENCOUNTER 2021-09-24 22:20 | Emergency (ER) | payer BC ==
[~2021-09-24] VITALS: Ht 170.2 cm; Wt 134.1 kg
[2021-09-24 22:49] VITALS: TEMP 98.4
[2021-09-25 01:15] LABS: BASO % 0.6 % (0.0-2.0); EOS # 0.2 K/mm3 (0.0-0.7); EOS % 2.6 % (0.0-4.0); GRAN # 3.8 K/mm3 (1.4-6.5); GRAN % 57.5 % (42.2-75.2); HEMOGLOBIN 11.8 g/dl (12.5-16.0); LYMPH # 2.1 K/mm3 (1.2-3.4); LYMPH % 31.9 % (20.0-51.0); MEAN CELL VOLUME 96 fl (80.0-100.0); MEAN CORPUSCULAR HEMOGLOBIN 33 pg (27-31); MEAN CORPUSCULAR HGB CONC 35 g/dl (33.0-37.0); MEAN PLATELET VOLUME 10.5 fl (7.4-10.4); MONO # 0.5 K/mm3 (0.1-0.6); MONO % 7.2 % (1.7-9.3); PLATELET COUNT 269 K/mm3 (130-400); RED BLOOD COUNT 3.55 M/mm3 (4.10-5.30); REDCELL DISTRIBUTION WIDTH-CV 12.4 % (11.5-14.5)
[2021-09-25 01:34] LABS: ALBUMIN 3.8 gm/dL (3.5-5.0); BILIRUBIN,TOTAL 0.2 mg/dL (0.2-1.2); CALCIUM 8.5 mg/dL (8.4-10.2); CREATININE, serum 0.76 mg/dL (0.57-1.11); POTASSIUM 3.8 mmol/L (3.5-4.5); TOTAL PROTEIN 6.6 gm/dL (6.2-8.1)
[2021-09-25 02:51] LABS: COLLECTION METHOD CLEAN CATCH
[2021-09-25 02:57] LABS: MUCOUS Present (NOT PRESENT); PH 7 (5-8); SQUAMOUS EPITHELIAL 0-2 /hpf (0-10); URINE APPEARANCE Hazy (CLEAR/HAZY); URINE BACTERIA None Seen /hpf (NONE SEEN); URINE BILIRUBIN Negative (NEGATIVE); URINE BLOOD 1+ (NEGATIVE); URINE COLOR Yellow (YELLOW); URINE GLUCOSE Negative (NEGATIVE); URINE KETONE Negative (NEGATIVE); URINE LEUKOCYTE ESTERASE Negative (NEGATIVE); URINE NITRATE Negative (NEGATIVE); URINE PROTEIN(semi-quant) Negative (NEGATIVE); URINE RBC 0-2 /hpf (0-2); URINE UROBILINOGEN Negative (NEGATIVE)
[2021-09-25 03:58] VITALS: BP 151/90; PULSE 82
== END 2021-09-25 04:00 | disposition home or self-care (01) ==
LOC: COL.ER 22:20
PROVIDERS: Personal Emergency Response Attendant
DX: R41.3 Other amnesia (principal); R32 Unspecified urinary incontinence; R53.83 Other fatigue; E66.9 Obesity, unspecified; W19.XXXA Unspecified fall, initial encounter
CPT/HCPCS: J7030

== ENCOUNTER 2023-02-13 15:41 | Emergency (ER) | payer BC ==
[~2023-02-13] VITALS: Ht 167.6 cm; Wt 136.4 kg
[2023-02-13 15:50] VITALS: TEMP 98.3
[2023-02-13 16:25] LABS: BASO % 0.4 % (0.0-2.0); EOS # 0.1 K/mm3 (0.0-0.7); GRAN # 6.2 K/mm3 (1.4-6.5); HEMATOCRIT 40.5 % (37.0-47.0); HEMOGLOBIN 13.5 g/dl (12.5-16.0); LYMPH # 2.1 K/mm3 (1.2-3.4); LYMPH % 23.9 % (20.0-51.0); MEAN CELL VOLUME 99 fl (80.0-100.0); MEAN CORPUSCULAR HEMOGLOBIN 33 pg (27-31); MEAN CORPUSCULAR HGB CONC 33 g/dl (33.0-37.0); MEAN PLATELET VOLUME 10.1 fl (7.4-10.4); MONO # 0.5 K/mm3 (0.1-0.6); MONO % 5.6 % (1.7-9.3); PLATELET COUNT 358 K/mm3 (130-400); REDCELL DISTRIBUTION WIDTH-CV 11.9 % (11.5-14.5)
[2023-02-13 16:35] LABS: ALBUMIN 4.1 gm/dL (3.5-5.0); BILIRUBIN,TOTAL 0.3 mg/dL (0.2-1.2); CALCIUM 9.1 mg/dL (8.4-10.2); CREATININE, serum 0.77 mg/dL (0.57-1.11); POTASSIUM 3.9 mmol/L (3.5-4.5); TOTAL PROTEIN 7.2 gm/dL (6.2-8.1)
[2023-02-13 17:26] VITALS: BP 134/82; PULSE 84
== END 2023-02-13 17:24 | disposition home or self-care (01) ==
LOC: COL.ER 15:41
PROVIDERS: Personal Emergency Response Attendant
DX: R40.4 Transient alteration of awareness (principal); R53.1 Weakness
CPT/HCPCS: J7030

== ENCOUNTER 2023-08-11 13:12 | Emergency (ER) | payer BC ==
[~2023-08-11] VITALS: Ht 167.6 cm; Wt 134.1 kg
[2023-08-11 13:20] VITALS: TEMP 98
[2023-08-11 14:04] LABS: BASO % 0.3 % (0.0-2.0); EOS # 0.1 K/mm3 (0.0-0.7); GRAN # 4.3 K/mm3 (1.4-6.5); HEMOGLOBIN 12.6 g/dl (12.5-16.0); LYMPH # 1.5 K/mm3 (1.2-3.4); LYMPH % 24.3 % (20.0-51.0); MEAN CELL VOLUME 97 fl (80.0-100.0); MEAN CORPUSCULAR HEMOGLOBIN 34 pg (27-31); MEAN CORPUSCULAR HGB CONC 35 g/dl (33.0-37.0); MEAN PLATELET VOLUME 10.6 fl (7.4-10.4); MONO # 0.3 K/mm3 (0.1-0.6); MONO % 5.2 % (1.7-9.3); PLATELET COUNT 267 K/mm3 (130-400); RED BLOOD COUNT 3.74 M/mm3 (4.10-5.30); REDCELL DISTRIBUTION WIDTH-CV 12.4 % (11.5-14.5)
[2023-08-11 14:10] LABS: HEMATOCRIT 36.4 % (37.0-47.0)
[2023-08-11 14:15] LABS: ERYTHROCYTE SEDIMENTATION RATE 20 mm/hr (0-20)
[2023-08-11 14:26] LABS: BILIRUBIN,TOTAL 0.3 mg/dL (0.2-1.2); C-REACTIVE PROTEIN 0.89 mg/dL (0.00-0.50); CALCIUM 9.1 mg/dL (8.4-10.2); POTASSIUM 3.8 mEq/L (3.5-4.5)
[2023-08-11 14:46] LABS: ALBUMIN 3.8 g/dL (3.5-5.0); CREATININE, serum 0.78 mg/dL (0.57-1.11); TOTAL PROTEIN 7.1 g/dl (6.2-8.1)
[2023-08-11 15:53] VITALS: BP 125/77; PULSE 77
== END 2023-08-11 15:53 | disposition home or self-care (01) ==
LOC: COL.ER 13:12
PROVIDERS: Emergency Medicine
DX: H53.9 Unspecified visual disturbance (principal); R79.82 Elevated C-reactive protein (CRP)

== ENCOUNTER 2023-10-26 16:44 | Emergency (ER) | payer BC ==
[~2023-10-26] VITALS: Ht 170.2 cm; Wt 134.1 kg
[2023-10-26 16:49] VITALS: TEMP 98.1; O2SAT 95
[2023-10-26 17:16] LABS: BASO % 0.5 % (0.0-2.0); EOS # 0.1 K/mm3 (0.0-0.7); EOS % 2.3 % (0.0-4.0); GRAN # 3.6 K/mm3 (1.4-6.5); GRAN % 57.7 % (42.2-75.2); HEMATOCRIT 37.8 % (37.0-47.0); HEMOGLOBIN 12.8 g/dl (12.5-16.0); LYMPH # 2.1 K/mm3 (1.2-3.4); LYMPH % 33.4 % (20.0-51.0); MEAN CELL VOLUME 100 fl (80.0-100.0); MEAN CORPUSCULAR HEMOGLOBIN 34 pg (27-31); MEAN CORPUSCULAR HGB CONC 34 g/dl (33.0-37.0); MEAN PLATELET VOLUME 10.7 fl (7.4-10.4); MONO # 0.4 K/mm3 (0.1-0.6); MONO % 5.9 % (1.7-9.3); PLATELET COUNT 291 K/mm3 (130-400); RED BLOOD COUNT 3.77 M/mm3 (4.10-5.30); REDCELL DISTRIBUTION WIDTH-CV 12.1 % (11.5-14.5)
[2023-10-26 17:33] LABS: ALANINE AMINOTRANSFERASE 22 U/L (0-55); ALBUMIN 3.9 g/dL (3.5-5.0); ALKALINE PHOSPHATASE 78 U/L (40-150); ANION GAP 9 mmol/L (7-16); AST,SGOT 20 U/L (5-34); BILIRUBIN,TOTAL 0.3 mg/dL (0.2-1.2); BLOOD UREA NITROGEN 10 mg/dL (7-19); CALCIUM 9.2 mg/dL (8.4-10.2); CHLORIDE 105 mEq/L (98-107); CREATININE, serum 0.81 mg/dL (0.57-1.11); GLUCOSE 101 mg/dL (70-99); POTASSIUM 3.8 mEq/L (3.5-4.5); SODIUM 135 mEq/L (136-145); TOTAL PROTEIN 6.7 g/dl (6.2-8.1)
[2023-10-26 17:54] LABS: TROPONIN-I < 0.010 ng/mL (0.00-0.033)
[2023-10-26 18:59] VITALS: BP 169/95; PULSE 68
== END 2023-10-26 18:59 | disposition home or self-care (01) ==
LOC: COL.ER 16:44
PROVIDERS: Physician Assistant
DX: R07.89 Other chest pain (principal)